=== PATIENT | male | born 2000 | race Caucasian/White ===

== ENCOUNTER 2019-08-02 13:21 | Emergency (ER) | payer BC ==
[2019-08-02 13:58] VITALS: BP 157/87
--- NOTE | 2019-08-02 14:07 | UC ---
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 He is under the care of an ENT physician and does sinus steroid rinses daily, OTC allergy med. He is trying to schedule sinus surgery with his ENT. He was on Doxycycline 3 weeks ago for sinusitis which never totally resolved. - History of Current Complaint Chief Complaint: UCGeneralIllness Stated Complaint: SINUS Time Seen by Provider: 08/02/19 14:06 Hx Obtained From: Patient Onset/Duration: Gradual Onset Severity: Moderate Pain Intensity: 2 Cough: None Associated Signs & Symptoms: Positive: Sinus Discomfort, Nasal Discharge Related History: Seasonal Allergies - Allergies/Home Medications Allergies/Adverse Reactions: Allergies Allergy/AdvReac Type Severity Reaction Status Date / Time No Known Allergies Allergy Verified 08/02/19 13:58 Home Medications: Home Medications Budesonide [Entocort EC] 1 dose PO SEE INSTRUCTIONS 08/02/19 [History Confirmed 08/02/19] Cetirizine HCl [Allergy Relief] 10 mg PO DAILY 08/02/19 [History Confirmed 08/02] Fluticasone NASAL SPRAY 50MCG* [Flonase NASAL SPRAY 50MCG*] 2 spray BOTH NARES DAILY 08/02/19 [History Confirmed 08/02/19] PMH/Surg Hx/FS Hx/Imm Hx Previously Healthy: Yes - Chronic sinusitis - Surgical History Surgical History: Yes Surgery Procedure, Year, and Place: nasal surgery. T&A - Family History Known Family History: Positive: Non-Contributory - Social History Occupation: Student Lives: Dormitory/Roommates Alcohol Use: Occasionally Substance Use Type: None Smoking Status (MU): Never Smoked Tobacco Review of Systems All Other Systems Reviewed And Are Negative: Yes ENT: Positive: Nasal Discharge, Sinus Congestion, Sinus Pain/Tenderness Is Patient Immunocompromised?: No Physical Exam Triage Information Reviewed: Yes Appearance: Well-Appearing, No Pain Distress, Well-Nourished Vital Signs: Initial Vital Signs Temp 98.2 F 08/02/19 13:56 Pulse 117 08/02/19 13:56 Resp 15 08/02/19 13:56 BP 157/87 08/02/19 13:56 Pulse Ox 100 08/02/19 13:56 Vital Signs Reviewed: Yes Eyes: Positive: Conjunctiva Clear ENT: Positive: Hearing grossly normal, Pharynx normal, Nasal congestion, Nasal drainage - Inflamed turbinates, yellow purulent nasal coryza, TMs normal, Sinus tenderness - Maxillary sinus tenderness bilaterally., Uvula midline Neck: Positive: Supple, Nontender, No Lymphadenopathy Respiratory: Positive: Lungs clear, Normal breath sounds, No respiratory distress, No accessory muscle use Cardiovascular: Positive: RRR, No Murmur, Pulses Normal, Brisk Capillary Refill Musculoskeletal Exam: Normal Neurological Exam: Normal Psychological Exam: Normal Skin Exam: Normal Throat Pain/Nasal Course/Dx - Course Course Of Treatment: Pt comfortable here. He is going to go home next week and meet with his ENT to schedule sinus surgery because he has been experiencing worsening sinusitis all school year. He is [facility]. - Differential Dx/Diagnosis Provider Diagnosis: Sinusitis Discharge ED - Sign-Out/Discharge Documenting (check all that apply): Patient Departure All imaging exams completed and their final reports reviewed: No Studies - Discharge Plan Condition: Fair Disposition: HOME Prescriptions: Amoxicillin/Clavulanate TAB* [Augmentin TAB 875*] 875 mg PO BID 10 Days #20 tab Patient Education Materials: Sinusitis (ED) Referrals: No Primary Care Phys,NOPCP [Primary Care Provider] - JAKY KIDD [[facility], APPLICATION, OTHER] - Additional Instructions: Continue your present medications, take the Augmentin with food - Billing Disposition and Condition Condition: FAIR Disposition: Home
== END 2019-08-02 14:23 | disposition home or self-care (01) ==
LOC: UCCORT 13:21
DX: J32.9 Chronic sinusitis, unspecified (principal)
CPT/HCPCS: 99202; G0463